=== PATIENT | female | born 1990 | race Caucasian/White ===

== ENCOUNTER 2024-05-27 11:52 | Emergency (ER) | payer MEDICAID ==
[~2024-05-27] VITALS: Ht 152.4 cm; Wt 72.0 kg
[2024-05-27 12:11] VITALS: O2SAT 98
[2024-05-27 13:09] LABS: BASOPHILS % 1.2 % (0.0-2.0); EOSINOPHILS % 2.1 % (0.0-5.0); LYMPHOCYTES % 23.4 % (20.0-50.0); MEAN CORPUSCULAR HEMOGLOBIN 29.4 pg (28.0-32.0); MEAN CORPUSCULAR HGB CONC 32.6 g/dL (31.0-37.0); MEAN CORPUSCULAR VOLUME 90.2 fL (81.0-99.0); MONOCYTES % 2.3 % (2.0-8.0); PLATELET 279 x1000/uL (130-400); RED CELL DISTRIBUTION WIDTH 16.1 % (11.6-14.6); WHITE BLOOD COUNT 7.2 x1000/uL (4.5-11.0)
[2024-05-27 13:12] LABS: CHLORIDE 102 mEq/L (98-107); POTASSIUM 4.6 mEq/L (3.5-5.1); SODIUM 134 mEq/L (136-145)
[2024-05-27 13:13] LABS: CARBON DIOXIDE 20 mEq/L (21-32)
[2024-05-27 13:14] LABS: CALCIUM 9.7 mg/dL (8.7-10.4)
[2024-05-27 13:19] LABS: UREA NITROGEN BLOOD 12 mg/dL (9-23)
[2024-05-27 13:54] LABS: BETA HYDROXYBUTYRATE 4.2 mMol/L (0.0-0.3)
[2024-05-27 14:07] LABS: GLUCOSE 488 mg/dL (70-105)
[2024-05-27 16:23] LABS: BG BASE EXCESS -7.7 mmol/L (-2.0-3.0); BG CARBOXYHEMOGLOBIN 0.8 % (0.5-1.5); BG DEOXYHEMOGLOBIN 1.8 % (0.0-5.0); BG FRACTION INSPIRED OXYGEN 21; BG HCO3 ACT 15.6 mmol/L (21.0-28.0); BG METHEMOGLOBIN 0.3 % (0.5-1.5); BG OXYGEN SATURATION 98.2 % (94.0-98.0); BG OXYHEMOGLOBIN 97.1 % (94.0-98.0); BG PH 7.379 (7.350-7.450); BG PO2 105.5 mmHg (83.0-108.0); BG SAMPLE SITE RIGHT RADIAL; BG TOTAL HEMOGLOBIN 15.8 g/dL (12.0-16.0); BG VENT MODE ROOM AIR
[2024-05-27] MEDS: INSULIN REGULAR (HUMULIN R) 1000UNITS/10ML VIAL SUBCUT ONE (17:07)
[2024-05-27] MEDS ORDERED: INSU100I24 SQ (17:11)
[2024-05-27] MEDS ORDERED: INSLIS SUBCUT (17:11)
[2024-05-27] MEDS ORDERED: SYRI-219 SQ (17:12)
[2024-05-27 17:20] VITALS: BP 130/71; PULSE 90; RESP 16; TEMP 36.55848; O2SAT 98
== END 2024-05-27 17:21 | disposition home or self-care (01) ==
LOC: ER 11:52
DX: E10.65 Type 1 diabetes mellitus with hyperglycemia (principal); Z76.0 Encounter for issue of repeat prescription; Z79.4 Long term (current) use of insulin
CPT/HCPCS: 99283; 80048; 82010; 85025; 36415; 82805; 82375; 96372; 36600; J1815

== ENCOUNTER 2025-02-23 13:04 | Emergency (ER) | payer MEDICAID ==
[~2025-02-23] VITALS: Ht 162.6 cm; Wt 82.0 kg
[~2025-02-23 13:04] MED LIST: INSLIS SUBCUT; INSU100I24 SQ; SYRI-219 SQ
[2025-02-23 13:12] VITALS: O2SAT 99
[2025-02-23 15:20] LABS: BASOPHILS % 0.9 % (0.0-2.0); EOSINOPHILS % 1.9 % (0.0-5.0); HEMATOCRIT. 44.4 % (36.0-48.0); HEMOGLOBIN. 14.8 g/dL (12.0-16.0); LYMPHOCYTES % 45.6 % (20.0-50.0); MEAN PLATELET VOLUME 7.7 fl (7.4-10.4); MONOCYTES % 7.3 % (2.0-8.0); NEUTROPHILS % 44.3 % (40.0-76.0); PLATELET 324 x1000/uL (130-400); RED BLOOD CELL COUNT 5.20 mill/uL (4.2-5.4); RED CELL DISTRIBUTION WIDTH 13.3 % (11.6-14.6)
[2025-02-23 15:35] LABS: HCG SCREEN NEGATIVE
[2025-02-23 15:36] LABS: CREATININE 0.6 mg/dL (0.6-1.0)
[2025-02-23 15:37] LABS: ETHANOL BLOOD < 10 mg/dL (<10); PROTEIN TOTAL 7.4 g/dL (6.0-8.3); UREA NITROGEN BLOOD 7 mg/dL (9-23)
[2025-02-23 15:38] LABS: ASPARTATE AMINOTRANSFERASE 20 IU/L (<34); BILIRUBIN DIRECT < 0.1 mg/dL (<=3.0)
[2025-02-23 15:39] LABS: BILIRUBIN TOTAL 0.3 mg/dL (0.1-1.0)
[2025-02-23] MEDS ORDERED: ONDA-239 PO (16:42)
[2025-02-23] MEDS ORDERED: LOPE1TAB46 MT (16:42)
[2025-02-23 17:10] VITALS: BP 142/85; PULSE 62; RESP 18; TEMP 36.9; O2SAT 100
== END 2025-02-23 17:14 | disposition home or self-care (01) ==
LOC: ER 13:20
DX: R19.7 Diarrhea, unspecified (principal); R10.13 Epigastric pain; E11.9 Type 2 diabetes mellitus without complications; I10 Essential (primary) hypertension; Z79.4 Long term (current) use of insulin; Z79.899 Other long term (current) drug therapy; Z20.822 Contact with and (suspected) exposure to COVID-19
CPT/HCPCS: 36415; 74176; 80048; 80076; 80320; 83735; 84703; 85025; 86850; 86900; 87426; 99284; G0480

== ENCOUNTER 2025-03-06 19:43 | Emergency (ER) | payer MEDICAID ==
[~2025-03-06] VITALS: Ht 162.6 cm; Wt 82.3 kg
[~2025-03-06 19:43] MED LIST changes: +LOPE1TAB46 MT; +ONDA-239 PO
[2025-03-06 20:31] VITALS: O2SAT 98
[2025-03-06 21:04] LABS: CLARITY URINE CLEAR (CLEAR); COLOR URINE YELLOW (YELLOW); GLUCOSE URINE 2+ (NEGATIVE); KETONES URINE NEGATIVE (NEGATIVE); LEUKOCYTE ESTERASE URINE NEGATIVE (NEGATIVE); NITRITE URINE NEGATIVE (NEGATIVE); OCCULT BLOOD URINE NEGATIVE (NEGATIVE); PH URINE 6.0 (4.5-8.0); PROTEIN URINE NEGATIVE (NEGATIVE); SPECIFIC GRAVITY URINE 1.006 (1.005-1.030); UROBILINOGEN URINE 0.2 E.U./dL (0.2-1.0)
[2025-03-06 21:10] LABS: BACTERIA URINE RARE; RBC URINE NONE SEEN /hpf (0-2); SQUAMOUS EPITHELIAL CELL URINE RARE /lpf (RARE/1+); WBC URINE 0-2 /hpf (0-2)
[2025-03-06 21:39] LABS: BASOPHILS % 1.2 % (0.0-2.0); EOSINOPHILS % 1.7 % (0.0-5.0); HEMATOCRIT. 41.0 % (36.0-48.0); HEMOGLOBIN. 13.6 g/dL (12.0-16.0); LYMPHOCYTES % 36.1 % (20.0-50.0); MEAN PLATELET VOLUME 7.8 fl (7.4-10.4); MONOCYTES % 7.0 % (2.0-8.0); NEUTROPHILS % 54.0 % (40.0-76.0); PLATELET 336 x1000/uL (130-400); RED BLOOD CELL COUNT 4.83 mill/uL (4.2-5.4); RED CELL DISTRIBUTION WIDTH 13.4 % (11.6-14.6)
[2025-03-06 21:52] LABS: HCG SCREEN NEGATIVE
[2025-03-06 21:55] LABS: CREATININE 0.9 mg/dL (0.6-1.0); UREA NITROGEN BLOOD 11 mg/dL (9-23)
[2025-03-06 22:10] LABS: ASPARTATE AMINOTRANSFERASE 16 IU/L (<34); BILIRUBIN DIRECT 0.1 mg/dL (<=3.0); BILIRUBIN TOTAL 0.3 mg/dL (0.1-1.0)
[2025-03-06 22:11] LABS: PROTEIN TOTAL 7.1 g/dL (6.0-8.3)
[2025-03-06] MEDS ORDERED: CIPR-452 MT (22:27)
[2025-03-06 22:40] VITALS: BP 125/78; PULSE 75; RESP 16; TEMP 37; O2SAT 100
== END 2025-03-06 22:47 | disposition home or self-care (01) ==
LOC: ER 19:43
DX: R19.7 Diarrhea, unspecified (principal); E11.9 Type 2 diabetes mellitus without complications; Z79.4 Long term (current) use of insulin; Z79.899 Other long term (current) drug therapy
CPT/HCPCS: 36415; 80048; 80076; 81003; 81025; 84703; 85025; 99283